=== PATIENT | female | born 1985 | race African-American/Black ===

== ENCOUNTER 2017-01-04 12:47 | Emergency (ER) | payer MEDICAID ==
[2017-01-04 13:21] LABS: BASOPHILS 0.1 % (0-2); EOSINOPHILS 0.9 % (0-7); HEMATOCRIT 39.7 % (36.0-48.0); IMMATURE GRANULOCYTES 0.1 % (0-5); LYMPHOCYTES 21.9 % (15-50); MCH 25.1 pg (26.0-34.0); MCHC 32.7 g/dL (31.0-37.0); MCV 76.6 fL (80.0-100.0); MONOCYTES 6.8 % (2-11); NEUTROPHILS 70.2 % (40-80); PLATELET COUNT 247 10x3/uL (130-400); RBC 5.18 10x6/uL (4.00-5.40); RDW 14.6 % (11.5-14.5); WBC 6.9 10x3/uL (4.8-10.8)
[2017-01-04 14:24] LABS: ALBUMIN 3.6 g/dL (3.4-5.0); ALKALINE PHOSPHATASE 92 U/L (46-116); ALT (SGPT) 20 U/L (10-68); BILIRUBIN - TOTAL 0.16 mg/dL (0.2-1.3); CALC OSMOLALITY 275 mosm/kg (275-300); CALCIUM 8.5 mg/dL (8.5-10.1); CARBON DIOXIDE 22.2 mmol/L (21.0-32.0); CHLORIDE - SERUM 105 mmol/L (98-107); CREATININE - SERUM 0.7 mg/dL (0.6-1.3); GLUCOSE 101 mg/dL (74-106); LIPASE 191 U/L (73-393); POTASSIUM - SERUM 3.8 mmol/L (3.5-5.1); PROTEIN - SERUM 7.6 g/dL (6.4-8.2); SODIUM 138 mmol/L (136-145); UREA NITROGEN 13 mg/dL (7-18); eGFR NON AFRICAN AMERICAN > 90 mL/min (90-120)
[2017-01-04 15:28] LABS: HCG URINE NEGATIVE (NEGATIVE)
[2017-01-04 15:37] LABS: APPEARANCE CLEAR (CLEAR); BILIRUBIN NEGATIVE (NEGATIVE); COLOR YELLOW (YELLOW); GLUCOSE NEGATIVE (NEGATIVE); KETONE NEGATIVE (NEGATIVE); LEUKOCYTE ESTERASE NEGATIVE (NEGATIVE); NITRITE NEGATIVE (NEGATIVE); PROTEIN TRACE mg/dL (NEGATIVE); SPECIFIC GRAVITY 1.025 (1.005-1.020); UROBILINOGEN NORMAL (NORMAL)
== END 2017-01-04 17:41 | disposition home or self-care (01) ==
LOC: D.ER 12:47
PROVIDERS: Emergency Medicine
DX: R10.9 Unspecified abdominal pain (principal)

== ENCOUNTER 2017-01-24 08:51 | Emergency (ER) | payer MEDICAID | END 2017-01-24 11:06 | disposition home or self-care (01) | LOC: D.ER 08:51 | DX: R51 Headache (principal) ==

== ENCOUNTER 2017-05-04 22:34 | Emergency (ER) | payer SELFPAY ==
[2017-05-04 23:21] LABS: BASOPHILS 0.4 % (0-2); EOSINOPHILS 2.7 % (0-7); HEMATOCRIT 38.9 % (36.0-48.0); HEMOGLOBIN 12.4 g/dL (12-16); IMMATURE GRANULOCYTES 0.2 % (0-5); LYMPHOCYTES 28.1 % (15-50); MCH 24.8 pg (26.0-34.0); MCHC 31.9 g/dL (31.0-37.0); MCV 77.6 fL (80.0-100.0); MEAN PLATELET VOLUME 10.6 fL (7.4-10.4); MONOCYTES 6.8 % (2-11); NEUTROPHILS 61.8 % (40-80); PLATELET COUNT 261 10x3/uL (130-400); RBC 5.01 10x6/uL (4.00-5.40); RDW 14.6 % (11.5-14.5); WBC 5.6 10x3/uL (4.8-10.8)
[2017-05-04 23:30] LABS: APPEARANCE CLEAR (CLEAR); BILIRUBIN NEGATIVE (NEGATIVE); COLOR YELLOW (YELLOW); GLUCOSE NEGATIVE (NEGATIVE); KETONE NEGATIVE (NEGATIVE); NITRITE NEGATIVE (NEGATIVE); PROTEIN NEGATIVE (NEGATIVE); SPECIFIC GRAVITY 1.015 (1.005-1.020); UROBILINOGEN NORMAL (NORMAL)
[2017-05-04 23:36] LABS: ALBUMIN 3.6 g/dL (3.4-5.0); ALKALINE PHOSPHATASE 84 U/L (46-116); ALT (SGPT) 24 U/L (10-68); AMYLASE - SERUM 114 U/L (25-115); BILIRUBIN - TOTAL 0.14 mg/dL (0.2-1.3); CALC OSMOLALITY 285 mosm/kg (275-300); CALCIUM 8.9 mg/dL (8.5-10.1); CARBON DIOXIDE 26.9 mmol/L (21.0-32.0); CHLORIDE - SERUM 109 mmol/L (98-107); CREATININE - SERUM 0.8 mg/dL (0.6-1.3); GLUCOSE 116 mg/dL (74-106); LIPASE 259 U/L (73-393); POTASSIUM - SERUM 3.8 mmol/L (3.5-5.1); PROTEIN - SERUM 7.1 g/dL (6.4-8.2); SODIUM 144 mmol/L (136-145); UREA NITROGEN 8 mg/dL (7-18); eGFR NON AFRICAN AMERICAN 89 mL/min (90-120)
[2017-05-04 23:37] LABS: HCG URINE NEGATIVE (NEGATIVE)
== END 2017-05-05 00:45 | disposition home or self-care (01) ==
LOC: D.ER 22:34
PROVIDERS: Emergency Medicine
DX: K59.00 Constipation, unspecified (principal)

== ENCOUNTER 2017-05-12 19:58 | Emergency (ER) | payer MEDICAID ==
[2017-05-12 20:33] LABS: BASOPHILS 0.2 % (0-2); EOSINOPHILS 1.5 % (0-7); HEMATOCRIT 38.8 % (36.0-48.0); HEMOGLOBIN 12.6 g/dL (12-16); IMMATURE GRANULOCYTES 0.2 % (0-5); LYMPHOCYTES 24.3 % (15-50); MCH 25.4 pg (26.0-34.0); MCHC 32.5 g/dL (31.0-37.0); MCV 78.2 fL (80.0-100.0); MONOCYTES 7.4 % (2-11); NEUTROPHILS 66.4 % (40-80); PLATELET COUNT 251 10x3/uL (130-400); RBC 4.96 10x6/uL (4.00-5.40); RDW 14.6 % (11.5-14.5); WBC 6.1 10x3/uL (4.8-10.8)
[2017-05-12 20:47] LABS: AMYLASE - SERUM 105 U/L (25-115); LIPASE 279 U/L (73-393)
[2017-05-12 21:14] LABS: APPEARANCE CLEAR (CLEAR); BILIRUBIN NEGATIVE (NEGATIVE); COLOR YELLOW (YELLOW); GLUCOSE NEGATIVE (NEGATIVE); KETONE NEGATIVE (NEGATIVE); NITRITE NEGATIVE (NEGATIVE); PROTEIN TRACE mg/dL (NEGATIVE); UROBILINOGEN NORMAL (NORMAL)
[2017-05-12 21:15] LABS: RED CELLS - URINE 0-5 /hpf (0-5)
[2017-05-12 21:16] LABS: BACTERIA FEW /hpf (NONE SEEN); EPITHELIAL CELLS 0-5 /hpf (0-5)
== END 2017-05-12 21:36 | disposition home or self-care (01) ==
LOC: D.ER 19:58
PROVIDERS: Family Medicine
DX: R10.13 Epigastric pain (principal)

== ENCOUNTER 2017-10-26 22:49 | Emergency (ER) | payer MEDICAID ==
[~2017-10-26] VITALS: Ht 154.9 cm; Wt 95.9 kg
[2017-10-26 22:58] VITALS: BP 118/67; Ht 154.9 cm; Wt 95.9 kg
[2017-10-27] MEDS ORDERED: CLEOCIN HCL150 MG PO (00:58)
[2017-10-27] MEDS ORDERED: CLINDAMAX VG (00:58)
[2017-10-27] MEDS ORDERED: DIFLUCAN150 MG PO (00:58)
[2017-10-27] MEDS ORDERED: [UNRECOGNIZED DRUG - OTHER] VG (00:58)
== END 2017-10-27 01:21 | disposition home or self-care (01) ==
LOC: D.ER 22:49
DX: T78.40XA Allergy, unspecified, initial encounter (principal); X58.XXXA Exposure to other specified factors, initial encounter; R10.2 Pelvic and perineal pain

== ENCOUNTER 2017-11-25 16:05 | Emergency (ER) | payer MEDICAID ==
[~2017-11-25] VITALS: Ht 154.9 cm; Wt 95.9 kg
[~2017-11-25 16:05] MED LIST: CLEOCIN HCL150 MG PO; CLINDAMAX VG; DIFLUCAN150 MG PO; [UNRECOGNIZED DRUG - OTHER] VG
[2017-11-25 16:12] VITALS: Ht 154.9 cm; Wt 95.9 kg
[2017-11-25 16:42] LABS: BASOPHILS 0.3 % (0-2); EOSINOPHILS 1.2 % (0-7); HEMOGLOBIN 11.4 g/dL (12-16); IMMATURE GRANULOCYTES 0.2 % (0-5); LYMPHOCYTES 21.6 % (15-50); MCH 24.2 pg (26.0-34.0); MCHC 31.7 g/dL (31.0-37.0); MCV 76.4 fL (80.0-100.0); MEAN PLATELET VOLUME 9.8 fL (7.4-10.4); NEUTROPHILS 69.7 % (40-80); PLATELET COUNT 229 10x3/uL (130-400); RBC 4.71 10x6/uL (4.00-5.40); WBC 5.9 10x3/uL (4.8-10.8)
[2017-11-25 17:19] LABS: ALBUMIN 3.3 g/dL (3.4-5.0); ALKALINE PHOSPHATASE 77 U/L (46-116); ALT (SGPT) 17 U/L (10-68); BILIRUBIN - TOTAL 0.16 mg/dL (0.2-1.3); CALC OSMOLALITY 284 mosm/kg (275-300); CALCIUM 8.5 mg/dL (8.5-10.1); CARBON DIOXIDE 24.9 mmol/L (21.0-32.0); CHLORIDE - SERUM 109 mmol/L (98-107); CREATININE - SERUM 0.8 mg/dL (0.6-1.3); GLUCOSE 104 mg/dL (74-106); POTASSIUM - SERUM 4.2 mmol/L (3.5-5.1); PROTEIN - SERUM 7.2 g/dL (6.4-8.2); SODIUM 143 mmol/L (136-145); UREA NITROGEN 12 mg/dL (7-18); eGFR NON AFRICAN AMERICAN 88 mL/min (90-120)
[2017-11-25 18:03] LABS: APPEARANCE CLEAR (CLEAR); BACTERIA MODERATE /hpf (NONE SEEN); BILIRUBIN NEGATIVE (NEGATIVE); COLOR YELLOW (YELLOW); GLUCOSE NEGATIVE (NEGATIVE); KETONE NEGATIVE (NEGATIVE); NITRITE NEGATIVE (NEGATIVE); PROTEIN NEGATIVE (NEGATIVE); RED CELLS - URINE 0-5 /hpf (0-5); UROBILINOGEN NORMAL (NORMAL)
[2017-11-25 18:04] LABS: MUCUS <1+ /lpf (NONE SEEN)
[2017-11-25 18:04] LABS: HCG URINE NEGATIVE (NEGATIVE)
[2017-11-25 18:45] LABS: HCG SERUM NEGATIVE (NEGATIVE)
[2017-11-25] MEDS ORDERED: DIFLUCAN150 MG PO (19:46)
[2017-11-25] MEDS ORDERED: NEURONTIN 300300 MG PO (19:47)
[2017-11-25 20:26] VITALS: BP 118/70
[2017-11-28 17:16] LABS: CHLAMYDIA TRACHOMATIS, NAA Negative (Negative)
== END 2017-11-25 20:26 | disposition home or self-care (01) ==
LOC: D.ER 16:05
PROVIDERS: Family Medicine
DX: N76.0 Acute vaginitis (principal); G56.03 Carpal tunnel syndrome, bilateral upper limbs; R20.2 Paresthesia of skin

== ENCOUNTER 2018-03-16 15:28 | Emergency (ER) | payer MEDICAID ==
[~2018-03-16] VITALS: Ht 154.9 cm; Wt 97.7 kg
[~2018-03-16 15:28] MED LIST changes: +NEURONTIN 300300 MG PO
[2018-03-16 15:45] VITALS: Ht 154.9 cm; Wt 97.7 kg
[2018-03-16] MEDS ORDERED: BACTRIM DS1 TAB PO (16:15)
[2018-03-16] MEDS ORDERED: MEDROL DOSE PACK4 MG PO (16:16)
[2018-03-16 16:35] VITALS: BP 119/63
== END 2018-03-16 16:26 | disposition home or self-care (01) ==
LOC: D.ER 15:28
DX: J02.0 Streptococcal pharyngitis (principal)

== ENCOUNTER 2018-05-16 18:08 | Emergency (ER) | payer MEDICAID ==
[~2018-05-16] VITALS: Ht 154.9 cm; Wt 96.8 kg
[~2018-05-16 18:08] MED LIST changes: +BACTRIM DS1 TAB PO; +MEDROL DOSE PACK4 MG PO
[2018-05-16 18:37] VITALS: Ht 154.9 cm; Wt 96.8 kg
[2018-05-16] MEDS ORDERED: LITHIUM CARBON150 MG PO (18:40)
[2018-05-16] MEDS ORDERED: XANAX0.25 MG PO (18:41)
[2018-05-16] MEDS ORDERED: DIFLUCAN150 MG PO (20:59)
[2018-05-16] MEDS ORDERED: FLAGYL500 MG PO (20:59)
[2018-05-16 21:17] VITALS: BP 110/65
[2018-05-16 21:24] LABS: HCG URINE NEGATIVE (NEGATIVE)
[2018-05-16 21:25] LABS: APPEARANCE CLEAR (CLEAR); COLOR YELLOW (YELLOW); SPECIFIC GRAVITY 1.025 (1.005-1.020)
[2018-05-16 21:26] LABS: BILIRUBIN NEGATIVE (NEGATIVE); GLUCOSE NEGATIVE (NEGATIVE); KETONE MODERATE mg/dL (NEGATIVE); NITRITE NEGATIVE (NEGATIVE); PROTEIN NEGATIVE (NEGATIVE); UROBILINOGEN NORMAL (NORMAL)
[2018-05-16 21:27] LABS: BACTERIA MANY /hpf (NONE SEEN); EPITHELIAL CELLS 0-5 /hpf (0-5); YEAST >1+ /hpf (NONE SEEN)
== END 2018-05-16 21:18 | disposition home or self-care (01) ==
LOC: D.ER 18:08
PROVIDERS: Family Medicine
DX: B37.89 Other sites of candidiasis (principal); N76.0 Acute vaginitis; B96.89 Other specified bacterial agents as the cause of diseases classified elsewhere

== ENCOUNTER 2018-07-05 19:53 | Emergency (ER) | payer MEDICAID ==
[~2018-07-05] VITALS: Ht 154.9 cm; Wt 95.9 kg
[~2018-07-05 19:53] MED LIST changes: +FLAGYL500 MG PO; +LITHIUM CARBON150 MG PO; +XANAX0.25 MG PO
[2018-07-05 20:00] VITALS: Ht 154.9 cm; Wt 95.9 kg
[2018-07-05] MEDS ORDERED: PRENAVITE1 TAB PO (20:01)
[2018-07-05 20:25] LABS: BASOPHILS 0.1 % (0-2); HEMATOCRIT 38.8 % (36.0-48.0); HEMOGLOBIN 12.5 g/dL (12-16); IMMATURE GRANULOCYTES 0.1 % (0-5); LYMPHOCYTES 24.4 % (15-50); MCH 24.4 pg (26.0-34.0); MCHC 32.2 g/dL (31.0-37.0); MCV 75.8 fL (80.0-100.0); MEAN PLATELET VOLUME 9.8 fL (7.4-10.4); MONOCYTES 6.4 % (2-11); RBC 5.12 10x6/uL (4.00-5.40); RDW 15.2 % (11.5-14.5); WBC 7.2 10x3/uL (4.8-10.8)
[2018-07-05 20:29] LABS: PLATELET COUNT 281 10x3/uL (130-400)
[2018-07-05 20:37] LABS: ALBUMIN 3.6 g/dL (3.4-5.0); ALKALINE PHOSPHATASE 80 U/L (46-116); ALT (SGPT) 15 U/L (10-68); BILIRUBIN - TOTAL 0.06 mg/dL (0.2-1.3); CALC OSMOLALITY 286 mosm/kg (275-300); CALCIUM 8.6 mg/dL (8.5-10.1); CHLORIDE - SERUM 108 mmol/L (98-107); CREATININE - SERUM 0.9 mg/dL (0.6-1.3); GLUCOSE 114 mg/dL (74-106); POTASSIUM - SERUM 3.9 mmol/L (3.5-5.1); PROTEIN - SERUM 7.7 g/dL (6.4-8.2); SODIUM 143 mmol/L (136-145); UREA NITROGEN 15 mg/dL (7-18); eGFR NON AFRICAN AMERICAN 76 mL/min (90-120)
[2018-07-05 20:41] LABS: AMYLASE - SERUM 109 U/L (25-115); LIPASE 241 U/L (73-393); TROPONIN-I < 0.017 ng/mL (0.000-0.060)
[2018-07-05 20:42] LABS: APPEARANCE CLEAR (CLEAR); BILIRUBIN NEGATIVE (NEGATIVE); COLOR YELLOW (YELLOW); GLUCOSE NEGATIVE (NEGATIVE); HCG URINE NEGATIVE (NEGATIVE); KETONE NEGATIVE (NEGATIVE); NITRITE NEGATIVE (NEGATIVE); PROTEIN TRACE mg/dL (NEGATIVE); UROBILINOGEN NORMAL (NORMAL)
[2018-07-05] MEDS ORDERED: CIPRO500 MG PO (22:48)
[2018-07-05] MEDS ORDERED: FLAGYL500 MG PO (22:48)
[2018-07-05] MEDS ORDERED: BENTYL 20 MG TA20 MG PO (22:49)
[2018-07-06 00:09] VITALS: BP 126/74
== END 2018-07-06 00:24 | disposition home or self-care (01) ==
LOC: D.ER 19:53
PROVIDERS: Family Medicine
DX: R10.9 Unspecified abdominal pain (principal); Z87.19 Personal history of other diseases of the digestive system

== ENCOUNTER 2018-08-20 20:52 | Emergency (ER) | payer MEDICAID ==
[~2018-08-20] VITALS: Ht 154.9 cm; Wt 94.5 kg
[~2018-08-20 20:52] MED LIST changes: +BENTYL 20 MG TA20 MG PO; +CIPRO500 MG PO; +PRENAVITE1 TAB PO
[2018-08-20 20:56] VITALS: Ht 154.9 cm; Wt 94.5 kg
[2018-08-20] MEDS ORDERED: XANAX0.5 MG PO (20:58)
[2018-08-20] MEDS ORDERED: LITHIUM CARBON150 MG PO (20:59)
[2018-08-20] MEDS ORDERED: ALBUTEROL SULF8.5 GM INH (22:10)
[2018-08-20] MEDS ORDERED: PREDNISONE50 MG PO (22:10)
[2018-08-20 23:15] VITALS: BP 141/76
== END 2018-08-20 22:40 | disposition home or self-care (01) ==
LOC: D.ER 20:52
DX: R05 Cough (principal); J45.901 Unspecified asthma with (acute) exacerbation

== ENCOUNTER 2018-11-11 23:47 | Emergency (ER) | payer MEDICAID ==
[~2018-11-11] VITALS: Ht 154.9 cm; Wt 97.7 kg
[~2018-11-11 23:47] MED LIST changes: +ALBUTEROL SULF8.5 GM INH; +PREDNISONE50 MG PO; +XANAX0.5 MG PO
[2018-11-11 23:54] VITALS: Ht 154.9 cm; Wt 97.7 kg
[2018-11-12 01:29] LABS: BASOPHILS 0.1 % (0-2); EOSINOPHILS 1.5 % (0-7); HEMATOCRIT 37.6 % (36.0-48.0); HEMOGLOBIN 11.9 g/dL (12-16); IMMATURE GRANULOCYTES 0.1 % (0-5); LYMPHOCYTES 24.8 % (15-50); MCH 24.5 pg (26.0-34.0); MCHC 31.6 g/dL (31.0-37.0); MCV 77.5 fL (80.0-100.0); MEAN PLATELET VOLUME 9.9 fL (7.4-10.4); MONOCYTES 7.3 % (2-11); NEUTROPHILS 66.2 % (40-80); PLATELET COUNT 245 10x3/uL (130-400); RBC 4.85 10x6/uL (4.00-5.40); RDW 15.1 % (11.5-14.5); WBC 7.1 10x3/uL (4.8-10.8)
[2018-11-12 01:36] LABS: APPEARANCE CLEAR (CLEAR); BILIRUBIN NEGATIVE (NEGATIVE); COLOR YELLOW (YELLOW); GLUCOSE NEGATIVE (NEGATIVE); KETONE NEGATIVE (NEGATIVE); NITRITE NEGATIVE (NEGATIVE); PROTEIN NEGATIVE (NEGATIVE); UROBILINOGEN NORMAL (NORMAL)
[2018-11-12 01:37] LABS: BACTERIA MODERATE /hpf (NONE SEEN); EPITHELIAL CELLS 0-5 /hpf (0-5); RED CELLS - URINE 0-5 /hpf (0-5); WHITE CELLS - URINE 0-5 /hpf (0-5)
[2018-11-12 01:43] LABS: HCG SERUM NEGATIVE (NEGATIVE); UDS - AMPHET NEGATIVE QUAL (NEGATIVE); UDS - BARB NEGATIVE QUAL (NEGATIVE); UDS - BENZO NEGATIVE QUAL (NEGATIVE); UDS - COCAINE NEGATIVE QUAL (NEGATIVE); UDS - OPIATE NEGATIVE QUAL (NEGATIVE); UDS - PCP NEGATIVE QUAL (NEGATIVE); UDS - THC NEGATIVE QUAL (NEGATIVE)
[2018-11-12 01:53] LABS: AMYLASE - SERUM 107 U/L (25-115); GLUCOSE 93 mg/dL (74-106); LIPASE 289 U/L (73-393); UREA NITROGEN 16 mg/dL (7-18)
[2018-11-12 01:54] LABS: ALBUMIN 3.4 g/dL (3.4-5.0); ALKALINE PHOSPHATASE 89 U/L (46-116); ALT (SGPT) 26 U/L (10-68); BILIRUBIN - TOTAL 0.17 mg/dL (0.2-1.3); CALC OSMOLALITY 287 mosm/kg (275-300); CALCIUM 8.6 mg/dL (8.5-10.1); CARBON DIOXIDE 31.1 mmol/L (21.0-32.0); CHLORIDE - SERUM 108 mmol/L (98-107); CREATININE - SERUM 0.8 mg/dL (0.6-1.3); POTASSIUM - SERUM 3.8 mmol/L (3.5-5.1); PROTEIN - SERUM 7.5 g/dL (6.4-8.2); SODIUM 144 mmol/L (136-145); eGFR NON AFRICAN AMERICAN 87 mL/min (90-120)
[2018-11-12] MEDS ORDERED: OMNICEF300 MG PO (03:56)
[2018-11-12] MEDS ORDERED: FLUTICASONE PRO16 GM NASAL (03:56)
[2018-11-12 04:05] VITALS: BP 110/74
== END 2018-11-12 04:05 | disposition home or self-care (01) ==
LOC: D.ER 23:47
PROVIDERS: Family Medicine
DX: J01.90 Acute sinusitis, unspecified (principal); K59.00 Constipation, unspecified

== ENCOUNTER → 2019-03-26 13:49 | Outpatient (CLI) | payer MEDICAID ==
[2018-11-11 23:54] VITALS: BMI 40.7
[~2019-03-26 13:49] MED LIST changes: +FLUTICASONE PRO16 GM NASAL; +OMNICEF300 MG PO
== END | disposition home or self-care (01) ==
LOC: D.LAB 03-18 10:45 → D.RT 03-18 11:00
PROVIDERS: ATTEND Internal Medicine Pulmonary Disease
DX: J45.909 Unspecified asthma, uncomplicated (principal)

== ENCOUNTER 2019-05-17 11:46 | Emergency (ER) | payer OTHER ==
[2019-05-17 11:50] VITALS: Ht 154.9 cm
[2019-05-17] MEDS ORDERED: OMEPRAZOLE40 MG PO (11:52)
[2019-05-17] MEDS ORDERED: CARAFATE1 G PO (11:52)
[2019-05-17] MEDS ORDERED: PHENERGAN25 M1 PO (11:52)
[2019-05-17 12:30] LABS: APPEARANCE CLEAR (CLEAR); COLOR YELLOW (YELLOW); NITRITE NEGATIVE (NEGATIVE); PROTEIN 1+ mg/dL (NEGATIVE); SPECIFIC GRAVITY 1.015 (1.005-1.020)
[2019-05-17 12:31] LABS: BACTERIA FEW /hpf (NEGATIVE); BILIRUBIN NEGATIVE (NEGATIVE); EPITHELIAL CELLS 0-5 /hpf (0-5); GLUCOSE NEGATIVE (NEGATIVE); KETONE NEGATIVE (NEGATIVE); RED CELLS - URINE NONE SEEN /hpf (0-5); UROBILINOGEN NORMAL (NORMAL); WHITE CELLS - URINE 0-5 /hpf (NEGATIVE)
[2019-05-17 12:33] LABS: BASOPHILS 0.3 % (0-2); HEMATOCRIT 38.5 % (36.0-48.0); HEMOGLOBIN 12.1 g/dL (12-16); IMMATURE GRANULOCYTES 0.2 % (0-5); LYMPHOCYTES 21.3 % (15-50); MCH 24.2 pg (26.0-34.0); MCHC 31.4 g/dL (31.0-37.0); MEAN PLATELET VOLUME 9.5 fL (7.4-10.4); MONOCYTES 6.9 % (2-11); NEUTROPHILS 70.3 % (40-80); PLATELET COUNT 267 10x3/uL (130-400); RDW 15.2 % (11.5-14.5)
[2019-05-17 12:36] LABS: HCG URINE NEGATIVE (NEGATIVE)
[2019-05-17 12:41] LABS: CALC OSMOLALITY 278 mosm/kg (275-300); CALCIUM 8.8 mg/dL (8.5-10.1); CARBON DIOXIDE 27.4 mmol/L (21.0-32.0); CHLORIDE - SERUM 106 mmol/L (98-107); CREATININE - SERUM 0.8 mg/dL (0.6-1.3); GLUCOSE 95 mg/dL (74-106); SODIUM 140 mmol/L (136-145); UREA NITROGEN 12 mg/dL (7-18); eGFR NON AFRICAN AMERICAN 87 mL/min (90-120)
[2019-05-17 12:47] LABS: ALBUMIN 3.1 g/dL (3.4-5.0); ALKALINE PHOSPHATASE 73 U/L (46-116); ALT (SGPT) 18 U/L (10-68); AMYLASE - SERUM 97 U/L (25-115); BILIRUBIN - TOTAL 0.18 mg/dL (0.2-1.3); LIPASE 231 U/L (73-393); PROTEIN - SERUM 7.3 g/dL (6.4-8.2)
[2019-05-17 13:44] LABS: UDS - AMPHET NEGATIVE QUAL (NEGATIVE); UDS - BARB NEGATIVE QUAL (NEGATIVE); UDS - BENZO NEGATIVE QUAL (NEGATIVE); UDS - COCAINE NEGATIVE QUAL (NEGATIVE); UDS - OPIATE NEGATIVE QUAL (NEGATIVE); UDS - PCP NEGATIVE QUAL (NEGATIVE); UDS - THC NEGATIVE QUAL (NEGATIVE)
[2019-05-17 14:06] LABS: HELICOBACTER PYLORI IGG NEGATIVE (NEGATIVE)
[2019-05-17] MEDS ORDERED: CARAFATE1 G/10 ML PO (14:33)
[2019-05-17 14:58] VITALS: BP 122/64
== END 2019-05-17 14:59 | disposition home or self-care (01) ==
LOC: D.ER 11:46
PROVIDERS: Emergency Medicine
DX: K21.9 Gastro-esophageal reflux disease without esophagitis (principal); J45.909 Unspecified asthma, uncomplicated

== ENCOUNTER 2019-05-25 11:54 | Day surgery (SDC) | payer OTHER ==
[~2019-05-25] VITALS: Ht 154.9 cm; Wt 105.0 kg
[~2019-05-25 11:54] MED LIST changes: +CARAFATE1 G PO; +CARAFATE1 G/10 ML PO; +OMEPRAZOLE40 MG PO; +PHENERGAN25 M1 PO
[2019-05-25 12:14] LABS: BASOPHILS 0.4 % (0-2); EOSINOPHILS 1.9 % (0-7); HEMOGLOBIN 11.6 g/dL (12-16); IMMATURE GRANULOCYTES 0.2 % (0-5); LYMPHOCYTES 24.5 % (15-50); MCH 24.4 pg (26.0-34.0); MCHC 31.4 g/dL (31.0-37.0); MCV 77.7 fL (80.0-100.0); MEAN PLATELET VOLUME 9.3 fL (7.4-10.4); MONOCYTES 6.6 % (2-11); NEUTROPHILS 66.4 % (40-80); PLATELET COUNT 252 10x3/uL (130-400); RBC 4.76 10x6/uL (4.00-5.40); RDW 15.2 % (11.5-14.5); WBC 5.3 10x3/uL (4.8-10.8)
[2019-05-25 12:29] LABS: HCG SERUM NEGATIVE (NEGATIVE)
[2019-05-25 13:38] VITALS: BP 117/87; Ht 154.9 cm; Wt 105.0 kg
--- NOTE | 2019-05-25 14:49 | NUR ---
DC INSTRUCTIONS GIVEN TO PT/FAMILY. STATE UNDERSTANDING. DC'D IV CATH FULLY INTACT.
--- NOTE | 2019-05-25 17:13 | NUR ---
PT LEFT UNIT VIA WC AT 1500
--- NOTE | 2019-05-26 07:42 | OP ---
PATIENT NAME: STANLEY PIRES MEDICAL RECORD: [id number] :85 LOCATION:[facility] ADMISSION DATE: SURGEON: HUY WERNER DO DATE OF OPERATION: 05/25/2019 PROCEDURE: EGD with biopsies. INDICATIONS FOR PROCEDURE: GERD, generalized abdominal tenderness, nausea. SCOPE: Olympus video gastroscope. MEDICATIONS: Propofol 220 mg IV per anesthesia. ESTIMATED BLOOD LOSS: Minimal. COMPLICATIONS: None. FINDINGS: Informed consent was given. The patient was made comfortable with the above medication. After reaching an adequate level of sedation by slow IV push, the patient was placed on her left side. The endoscope was advanced under direct visualization through the mouth to the second portion of the duodenum. The entire esophagus appeared normal. At the GE junction, there was evidence of mild LA class A reflux-induced esophagitis. The endoscope was advanced beyond the GE junction into the stomach and retroflexed to view the cardia and fundus, which appeared normal. In the distal body of the stomach as well as the antrum and prepyloric regions, there were areas of patchy granularity and erythema and what appeared to possibly be some healing ulcerated areas. There were no large ulcers or active bleeding. Cold forceps biopsies were taken from the antrum and incisura to submit for histopathology and to rule out the presence of H. pylori. The endoscope was advanced beyond the pylorus into the duodenum, which appeared normal to the second portion. Random cold forceps biopsies were taken from the small intestine. The endoscope was then withdrawn back up into the mid esophagus and random cold forceps biopsies were taken from this site as well. The endoscope was withdrawn from the patient. The patient tolerated the procedure well and there were no immediate complications. IMPRESSION: 1. LA class A reflux-induced esophagitis. 2. Gastritis. PLAN AND RECOMMENDATIONS: 1. Discharge home when recovery parameters are met. 2. Follow up biopsy specimen results. 3. GERD diet and reflux precautions. 4. Continue current medications including omeprazole 40 mg daily. 5. We will arrange a gastric emptying scan to rule out decreased motility of the stomach and gastroparesis. 6. Follow up in GI Clinic in 4 weeks to determine if further workup will be necessary and to review studies and findings. 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 05/25/19 [facility] [address] [place] [address]
== END 2019-05-25 15:00 | disposition home or self-care (01) ==
LOC: D.OPS 11:54
PROVIDERS: Anesthesiology; ATTEND Internal Medicine Gastroenterology
DX: K21.9 Gastro-esophageal reflux disease without esophagitis (principal); R10.817 Generalized abdominal tenderness; R11.0 Nausea; K59.00 Constipation, unspecified

== ENCOUNTER → 2019-06-01 10:58 | Outpatient (CLI) | payer OTHER ==
[2019-05-25 13:38] VITALS: BMI 43.7
== END | disposition home or self-care (01) ==
LOC: D.NM 10:58
PROVIDERS: ATTEND Internal Medicine Gastroenterology
DX: R10.9 Unspecified abdominal pain (principal); R11.0 Nausea

== ENCOUNTER 2019-07-09 16:49 | Emergency (ER) | payer OTHER ==
[~2019-07-09] VITALS: Ht 154.9 cm; Wt 108.2 kg
[2019-07-09 17:12] VITALS: Ht 154.9 cm; Wt 108.2 kg
[2019-07-09] MEDS ORDERED: BCP (17:15)
[2019-07-09 17:45] LABS: BASOPHILS 0.1 % (0-2); EOSINOPHILS 0.4 % (0-7); HEMOGLOBIN 11.8 g/dL (12-16); IMMATURE GRANULOCYTES 0.3 % (0-5); LYMPHOCYTES 18.5 % (15-50); MCH 24.1 pg (26.0-34.0); MCHC 31.1 g/dL (31.0-37.0); MCV 77.6 fL (80.0-100.0); MONOCYTES 5.3 % (2-11); NEUTROPHILS 75.4 % (40-80); PLATELET COUNT 296 10x3/uL (130-400); RDW 15.4 % (11.5-14.5); WBC 7.3 10x3/uL (4.8-10.8)
[2019-07-09 18:06] LABS: CALC OSMOLALITY 279 mosm/kg (275-300); CALCIUM 8.8 mg/dL (8.5-10.1); CARBON DIOXIDE 25.7 mmol/L (21.0-32.0); CHLORIDE - SERUM 106 mmol/L (98-107); CREATININE - SERUM 0.8 mg/dL (0.6-1.3); GLUCOSE 101 mg/dL (74-106); POTASSIUM - SERUM 3.6 mmol/L (3.5-5.1); SODIUM 141 mmol/L (136-145); UREA NITROGEN 11 mg/dL (7-18); eGFR NON AFRICAN AMERICAN 87 mL/min (90-120)
[2019-07-09 18:13] LABS: ALBUMIN 3.4 g/dL (3.4-5.0); ALKALINE PHOSPHATASE 72 U/L (30-120); ALT (SGPT) 19 U/L (10-68); AMYLASE - SERUM 88 U/L (25-115); BILIRUBIN - TOTAL 0.25 mg/dL (0.2-1.3); LIPASE 188 U/L (73-393); PROTEIN - SERUM 7.5 g/dL (6.4-8.2); TROPONIN-I < 0.017 ng/mL (0.000-0.060)
[2019-07-09 18:57] LABS: BILIRUBIN NEGATIVE (NEGATIVE); GLUCOSE NEGATIVE (NEGATIVE); KETONE LARGE mg/dL (NEGATIVE); NITRITE NEGATIVE (NEGATIVE); UROBILINOGEN NORMAL (NORMAL)
[2019-07-09 18:59] LABS: HCG URINE NEGATIVE (NEGATIVE)
[2019-07-09] MEDS ORDERED: PHENERGAN25 M1 PO (20:00)
[2019-07-09 20:30] VITALS: BP 112/74
== END 2019-07-09 20:23 | disposition home or self-care (01) ==
LOC: D.ER 16:49
PROVIDERS: Family Medicine
DX: A08.4 Viral intestinal infection, unspecified (principal); K52.9 Noninfective gastroenteritis and colitis, unspecified

== ENCOUNTER 2019-09-14 11:39 | Day surgery (SDC) | payer OTHER ==
[~2019-09-14] VITALS: Ht 154.9 cm; Wt 104.5 kg
--- NOTE | ~2019-09-14 | OP ---
PATIENT NAME: STANLEY PIRES MEDICAL RECORD: [id number] :85 LOCATION:[facility] ADMISSION DATE: SURGEON: HUY WERNER DO DATE OF OPERATION: 09/14/2019 PROCEDURE: Colonoscopy with biopsy, polypectomy. INDICATIONS FOR PROCEDURE: Constipation and generalized abdominal tenderness. SCOPE: Nangate video pediatric colonoscope. MEDICATIONS: Propofol 600 mg IV per anesthesia. WITHDRAWAL TIME: 8 minutes. ESTIMATED BLOOD LOSS: Minimal. COMPLICATIONS: None. FINDINGS: Informed consent was given. The patient was made comfortable with the above medication. After reaching an adequate level of sedation by slow IV push, the patient was placed on her left side. A digital rectal examination was performed and was normal. The endoscope was then advanced under direct visualization through the rectum to the cecum, confirmed by the presence of the appendiceal orifice and ileocecal valve. The endoscope was slowly withdrawn and mucosa was carefully examined. The prep quality was good. There was a single benign-appearing sessile polyp located in the descending colon. It measured approximately 3-4 mm in diameter. It was removed using cold forceps. There was evidence of mild diverticulosis throughout the entire colon. Retroflexion was performed in the rectum with a normal appearing rectal wall visualized. The endoscope was withdrawn from the patient. The patient tolerated the procedure well and there were no complications. IMPRESSION: 1. Mild diverticulosis of the entire colon. 2. A single benign-appearing sessile polyp located in the descending colon, status post cold forceps polypectomy. PLAN AND RECOMMENDATIONS: 1. Discharge home when recovery parameters are met. 2. Follow up biopsy specimen results. 3. High fiber diet. 4. Supplement diet with 1 tablespoon of Metamucil daily. 5. A prescription for Linzess 145 mcg daily will be provided. Depending on insurance coverage this may need to be changed to Amitiza. We will titrate dosing at followup visit for effect. 6. I recommend the patient discontinue dicyclomine in light of her gastric dysmotility and constipation. 7. Recall colonoscopy will be dependent on results of polyps removed on today's examination. If this is hyperplastic polyps, surveillance endoscopy/screening can occur at age 50. If this is adenomatous, I would recommend a repeat in 5 years. TRANSINT:[id number] Voice Confirmation ID: [id number] DOCUMENT ID: [id number] OPERATIVE REPORT [id number] STANLEY PIRES NATHAN A DO CC: [id number] DICTATION DATE: 09/14/19 141 X RAY PHYSICIAN: 09/14/19 1425 [facility] [address] [id number]
[~2019-09-14 11:39] MED LIST changes: +BCP
[2019-09-14] MEDS ORDERED: ACETAMINOPHEN500 M1 PO (12:23)
[2019-09-14] MEDS ORDERED: ADVAIR 250-501 EAC1 INH (12:24)
[2019-09-14] MEDS ORDERED: CHLORZOXAZONE (12:25)
[2019-09-14 12:34] LABS: HEMOGLOBIN 12.5 g/dL (12-16); MCH 23.4 pg (26.0-34.0); MCHC 30.5 g/dL (31.0-37.0); MCV 76.6 fL (80.0-100.0); MEAN PLATELET VOLUME 9.9 fL (7.4-10.4); RBC 5.35 10x6/uL (4.00-5.40); RDW 15.2 % (11.5-14.5); WBC 5.5 10x3/uL (4.8-10.8)
[2019-09-14 12:37] VITALS: BP 117/74; Ht 154.9 cm; Wt 104.5 kg
== END 2019-09-14 15:10 | disposition home or self-care (01) ==
LOC: D.OPS 11:39
PROVIDERS: Anesthesiology; ATTEND Internal Medicine Gastroenterology
DX: K59.00 Constipation, unspecified (principal); R10.9 Unspecified abdominal pain; K63.5 Polyp of colon; K57.30 Diverticulosis of large intestine without perforation or abscess without bleeding; J45.909 Unspecified asthma, uncomplicated; K21.9 Gastro-esophageal reflux disease without esophagitis; R11.0 Nausea; R10.13 Epigastric pain; K31.84 Gastroparesis

== ENCOUNTER 2020-07-31 13:34 | Emergency (ER) | payer OTHER ==
[~2020-07-31] VITALS: Ht 154.9 cm; Wt 96.8 kg
[~2020-07-31 13:34] MED LIST changes: +ACETAMINOPHEN500 M1 PO; +ADVAIR 250-501 EAC1 INH; +CHLORZOXAZONE
[2020-07-31 13:52] VITALS: BP 123/82; Ht 154.9 cm; Wt 96.8 kg
[2020-07-31] MEDS ORDERED: AMOXICILLIN500 M1 PO (13:55)
[2020-07-31] MEDS ORDERED: SINGULAIR10 MG PO (13:56)
[2020-07-31] MEDS ORDERED: FERROUS SULFAT325 MG PO (13:56)
[2020-07-31] MEDS ORDERED: OS-CAL500 MG PO (13:56)
[2020-07-31 14:11] LABS: BASOPHILS 0.2 % (0-2); EOSINOPHILS 0.7 % (0-7); HEMATOCRIT 40.9 % (36.0-48.0); HEMOGLOBIN 12.8 g/dL (12-16); IMMATURE GRANULOCYTES 0.7 % (0-5); LYMPHOCYTE ABS# 1.61 10x3/uL (1.18-3.74); LYMPHOCYTES 15.7 % (15-50); MCH 24.1 pg (26.0-34.0); MCHC 31.3 g/dL (31.0-37.0); MCV 76.9 fL (80.0-100.0); MEAN PLATELET VOLUME 9.5 fL (7.4-10.4); MONOCYTES 11.6 % (2-11); NEUTROPHILS 71.1 % (40-80); PLATELET COUNT 312 10x3/uL (130-400); RBC 5.32 10x6/uL (4.00-5.40); RDW 15.7 % (11.5-14.5); WBC 10.3 10x3/uL (4.8-10.8)
[2020-07-31 14:21] LABS: CALC OSMOLALITY 281 mosm/kg (275-300); CALCIUM 8.6 mg/dL (8.5-10.1); CARBON DIOXIDE 27.8 mmol/L (21.0-32.0); CHLORIDE - SERUM 105 mmol/L (98-107); CREATININE - SERUM 0.8 mg/dL (0.6-1.3); GLUCOSE 92 mg/dL (74-106); POTASSIUM - SERUM 3.6 mmol/L (3.5-5.1); SODIUM 140 mmol/L (136-145); UREA NITROGEN 20 mg/dL (7-18); eGFR NON AFRICAN AMERICAN 86 mL/min (90-120)
[2020-07-31 14:29] LABS: ALBUMIN 3.3 g/dL (3.4-5.0); ALKALINE PHOSPHATASE 79 U/L (30-120); ALT (SGPT) 22 U/L (10-68); AMYLASE - SERUM 160 U/L (25-115); BILIRUBIN - TOTAL 0.13 mg/dL (0.2-1.3); LIPASE 372 U/L (73-393); PROTEIN - SERUM 6.9 g/dL (6.4-8.2)
[2020-07-31 14:29] LABS: HCG URINE NEGATIVE (NEGATIVE)
[2020-07-31 14:30] LABS: BILIRUBIN NEGATIVE (NEGATIVE); KETONE NEGATIVE (NEGATIVE); NITRITE NEGATIVE (NEGATIVE); UROBILINOGEN NORMAL mg/dL (< 2)
[2020-07-31 14:35] LABS: TROPONIN-I < 0.017 ng/mL (0.000-0.060)
[2020-07-31] MEDS ORDERED: ZOFRAN ODT4 MG/UDTAB PO (17:21)
== END 2020-07-31 17:52 | disposition home or self-care (01) ==
LOC: D.ER 13:34
PROVIDERS: Family Medicine
DX: R10.9 Unspecified abdominal pain (principal); K59.00 Constipation, unspecified; J45.909 Unspecified asthma, uncomplicated